=== PATIENT | male | born 2000 | race Caucasian/White ===

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

== ENCOUNTER 2021-10-12 17:04 | Emergency (ER) | payer BC ==
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
== END 2021-10-12 18:40 | disposition home or self-care (01) ==
LOC: JD.ED 17:04
DX: S06.0X0A Concussion without loss of consciousness, initial encounter (principal); S00.81XA Abrasion of other part of head, initial encounter; Z88.0 Allergy status to penicillin; W22.8XXA Striking against or struck by other objects, initial encounter
CPT/HCPCS: 99283

== ENCOUNTER 2024-02-18 00:54 | Emergency (ER) | payer BC ==
[2024-02-18 01:27] LABS: BASOPHILS ABSOLUTE AUTO 0.1 K/mm3 (0.0-0.2); BASOPHILS PERCENT AUTO 0.9 % (0.0-1.0); EOSINOPHILS ABSOLUTE AUTO 0.1 K/mm3 (0.0-0.4); EOSINOPHILS PERCENT AUTO 1.6 % (0.0-6.0); HEMATOCRIT 42.7 % (42.0-52.0); HEMOGLOBIN 14.8 gm/dl (14.0-18.0); IMMATURE GRAN ABSOLUTE AUTO 0.01 K/mm3 (0.00-0.05); IMMATURE GRAN PERCENT AUTO 0.2 % (0.0-0.4); LYMPHOCYTES ABSOLUTE AUTO 3.2 K/mm3 (1.0-4.8); LYMPHOCYTES PERCENT AUTO 56.3 % (24.0-44.0); MEAN CORPUSCULAR HEMOGLOBIN 30.8 pg (28.0-32.0); MEAN CORPUSCULAR HGB CONC 34.7 g/dl (32.0-36.0); MEAN CORPUSCULAR VOLUME 88.8 fl (83.0-99.0); MEAN PLATELET VOLUME 9.1 fl (9.4-12.4); MONOCYTES ABSOLUTE AUTO 0.5 K/mm3 (0.0-0.8); MONOCYTES PERCENT AUTO 9.5 % (0.0-8.0); NEUTROPHILS ABSOLUTE AUTO 1.8 K/mm3 (1.8-7.7); NEUTROPHILS PERCENT AUTO 31.5 % (41.0-71.0); PLATELET COUNT,PLT 240 K/mm3 (150-400); RED BLOOD CELL COUNT 4.81 M/mm3 (4.52-5.90)
[2024-02-18 01:56] LABS: A/G RATIO 1.4 (1-2); ALANINE AMINOTRANSFERASE,ALT 35 U/L (16-63); ALBUMIN 4.2 g/dl (3.4-5.0); ALKALINE PHOSPHATASE 118 U/L (46-116); ANION GAP 16.2 (5-15); ASPARTATE AMNIOTRANSFERASE,AST 17 U/L (15-37); BILIRUBIN TOTAL 0.2 mg/dL (0.2-1.0); BLOOD UREA NITROGEN,BUN 7 mg/dL (7-18); BUN/CREATININE RATIO 7.8 (14-18); CALCIUM 8.5 mg/dL (8.5-10.1); CARBON DIOXIDE,CO2 24 mEq/L (21-32); CHLORIDE,CL 107 mEq/L (98-107); CREATININE 0.9 mg/dL (0.7-1.3); EST CRCL DRUG DOSING (CG) 132.93 mL/min; ESTIMATED GFR 124 mL/min (>60); ETHANOL BLOOD MEDICAL 0.28 gm% (0.00); GLUCOSE RANDOM 121 mg/dL (70-99); POTASSIUM,K 3.2 mEq/L (3.5-5.1); PROTEIN TOTAL,TP 7.3 g/dl (6.4-8.2); SODIUM,NA 144 mEq/L (136-145)
[2024-02-18 01:57] LABS: ACETAMINOPHEN 0 ug/mL (10-30); TROPONIN I HIGH SENSITIVITY < 4 pg/mL (<=76)
[2024-02-18] MEDS: Sodium Chloride 0.9% 1,000 ML IV ONE (02:42)
[2024-02-18] MEDS ORDERED: NS with KCl 40mEq 1,000 ML IV SCH (08:15)
== END 2024-02-18 09:21 | disposition home or self-care (01) ==
LOC: JD.ED 00:54
DX: F10.121 Alcohol abuse with intoxication delirium (principal); R45.851 Suicidal ideations; Z88.0 Allergy status to penicillin; Z88.1 Allergy status to other antibiotic agents; Y90.7 Blood alcohol level of 200-239 mg/100 ml
CPT/HCPCS: 36415; 80053; 80143; 80179; 80307; 83735; 84484; 85025; 96360; 99284; J7030; 99285